=== PATIENT | female | born 2000 | race American Indian/Alaskan Native ===

== ENCOUNTER 2021-06-09 15:52 | Emergency (ER) | payer BC ==
[2021-06-09 16:11] VITALS: BP 119/90
[2021-06-09 17:58] LABS: Amorphous Crystals,Urine Few; Bilirubin,Urine NEG (Negative); Blood,Urine NEG (Negative); Color,Urine Straw (Yellow); Protein,Urine <15 mg/dL mg/dL (Negative); Urobilinogen,Urine < 2.0 mg/dL (<2.0)
[2021-06-09 17:59] LABS: HCG Qualitative,Urine Negative (Negative)
--- NOTE | 2021-06-09 17:59 | Emergency Department Report ---
ED Female HPI - General Chief complaint: Urogenital-Female Stated complaint: VAGINAL ITCHING AND IRRITATION Time Seen by Provider: 06/09/21 16:18 Source: patient Mode of arrival: Ambulatory Limitations: No Limitations - History of Present Illness Initial comments: Patient is a 21-year-old female presents emergency room with complaints of vaginal itching, vaginal discharge, vaginal irritation that began a couple days ago. Patient states that she began experiencing the symptoms after she took a bubble bath. Patient reports that her discharge looks similar to when she has had a yeast infection in the past. she denies any blisters, lesions, rashes. She denies any abdominal pain, vaginal bleeding, vomiting, diarrhea. Patient denies any concerns for STDs and politely declines STD treatment. No allergies to medications - Related Data Previous Rx's Medication Instructions Recorded Last Taken Type Fluconazole [Diflucan TAB] 150 mg PO QDAY 1 Days #3 tablet 06/09/21 Unknown Rx metroNIDAZOLE [Flagyl] 500 mg PO BID 7 Days #14 tab 06/09/21 Unknown Rx Allergies Allergy/AdvReac Type Severity Reaction Status Date / Time No Known Allergies Allergy Unverified 06/09/21 16:11 ED Review of Systems ROS: Stated complaint: VAGINAL ITCHING AND IRRITATION Other details as noted in HPI Comment: All other systems reviewed and negative ED Past Medical Hx - Medications Home Medications: Home Medications Medication Instructions Recorded Confirmed Last Taken Type Fluconazole [Diflucan TAB] 150 mg PO QDAY 1 Days #3 tablet 06/09/21 Unknown Rx metroNIDAZOLE [Flagyl] 500 mg PO BID 7 Days #14 tab 06/09/21 Unknown Rx ED Physical Exam - General Limitations: No Limitations General appearance: alert, in no apparent distress - Head Head exam: Present: atraumatic, normocephalic - ENT ENT exam: Present: mucous membranes moist - Neurological Exam Neurological exam: Present: alert, oriented X3 - Psychiatric Psychiatric exam: Present: normal affect, normal mood - Skin Skin exam: Present: warm, dry ED Course Vital Signs 06/09/21 16:02 Temperature 98.4 F Pulse Rate 79 Respiratory 20 Rate Blood Pressure 119/90 [Right] O2 Sat by Pulse 98 Oximetry ED Medical Decision Making - Medical Decision Making Patient is a 21-year-old female presents emergency room with complaints of vaginal itching, vaginal discharge, vaginal irritation that began a couple days ago. Patient states that she began experiencing the symptoms after she took a bubble bath. Patient reports that her discharge looks similar to when she has had a yeast infection in the past. she denies any blisters, lesions, rashes. She denies any abdominal pain, vaginal bleeding, vomiting, diarrhea. Patient denies any concerns for STDs and politely declines STD treatment. No allergies to medications. Vitals are normal. UA without evidence of significant UTI, urine is negative. I went to discuss results with patient and give patient prescription for vaginitis and appears patient has eloped from the emergency department prior to completion of her tests and prior to receiving her discharge paperwork and prescriptions. Critical care attestation.: If time is entered above; I have spent that time in minutes in the direct care of this critically ill patient, excluding procedure time. ED Disposition Clinical Impression: Vaginitis Qualifiers: Chronicity: acute Qualified Code(s): N76.0 - Acute vaginitis Disposition: 07 LEFT AWOL/ELOPED Is pt being admited?: No Does the pt Need Aspirin: No Condition: Stable Instructions: Vaginitis Prescriptions: Fluconazole [Diflucan TAB] 150 mg PO QDAY 1 Days #3 tablet metroNIDAZOLE [Flagyl] 500 mg PO BID 7 Days #14 tab Referrals: PRIMARY CAREMD [Primary Care Provider] - 3-5 Days [facility] [Provider Group] - 3-5 Days MELONIE GAMBOA MD [Staff Physician] - 3-5 Days Time of Disposition: 18:02 Print Language: [id number]
== END 2021-06-09 18:03 | disposition left against medical advice (07) ==
LOC: ED 15:52
DX: N76.0 Acute vaginitis (principal)
CPT/HCPCS: 81001; 81025; 99283